=== PATIENT | female | born 1960 | race Caucasian/White ===

== ENCOUNTER → 2021-09-09 11:59 | Outpatient (CLI) | payer OTHER, SELFPAY ==
--- NOTE | 2021-09-09 | DI.MG.S_ITS ---
UNILATERAL LEFT DIGITAL DIAGNOSTIC MAMMOGRAM 3D/2D WITH ADDITIONAL VIEWS: 09/09/2021 CLINICAL: Additional evaluation requested from prior study. Comparison is made to exams dated: 03/03/2021 mammogram, 07/13/2018 mammogram, 04/12/2017 mammogram, and 03/07/2015 mammogram - [facility]. There are scattered fibroglandular elements in left breast. There is an asymmetry in the left breast middle depth superior region seen on the mediolateral oblique view only. This is not seen in additional views. No other significant masses or calcifications are seen in the breast. IMPRESSION: NEGATIVE There is no mammographic evidence of malignancy. The asymmetry in the left breast is consistent with fibroglandular tissue and is benign. A 1 year screening mammogram is recommended. Exam findings were conveyed to the patient. This exam was interpreted at Station ID: [id number]. NOTE: For mammograms, a report in lay terms will be sent to the patient. Approximately 15% of breast malignancies will not be visualized mammographically. In the management of a palpable breast mass, a negative mammogram must not discourage biopsy of a clinically suspicious lesion. Electronically Signed By: Arsalan Benavides M.D. slc/:09/09/2021 12:29:30 letter sent: Normal Exam ACR BI-RADS Category 1: Negative 3341F
== END ==
PROVIDERS: Family Provider Family Medicine; PCP Physician Assistant Medical; Referring Provider Physician Assistant Medical; Visit Provider Physician Assistant Medical
DX: R92.8 Other abnormal and inconclusive findings on diagnostic imaging of breast (principal)
CPT/HCPCS: 77065; G0279

== ENCOUNTER → 2022-10-08 14:23 | Outpatient (CLI) | payer OTHER, SELFPAY ==
--- NOTE | 2022-10-08 | DI.MG.S_ITS ---
BILATERAL DIGITAL SCREENING MAMMOGRAM 3D/2D WITH CAD: 10/08/2022 CLINICAL: Routine screening. Family history of breast cancer. Comparison is made to exams dated: 03/03/2021 mammogram, 07/13/2018 mammogram, and 04/12/2017 mammogram - [facility]. Both breasts are heterogeneously dense, which may obscure small masses (category c / 51-75% glandular tissue). Current study was also evaluated with a Computer Aided Detection (CAD) system. No significant masses, calcifications, or other findings are seen in either breast. There has been no significant interval change. IMPRESSION: NEGATIVE There is no mammographic evidence of malignancy. A 1 year screening mammogram is recommended. Based on the Tyrer Cuzick model (a risk assessment model) the patient's lifetime risk is 13.8% and her 10 year risk is 5.7%. According to the ACR, ACS, and NCCN guidelines, an annual breast MRI exam along with mammogram is recommended if the patient's lifetime risk is 20% or greater. This exam was interpreted at Station ID: [id number]. NOTE: For mammograms, a report in lay terms will be sent to the patient. Approximately 15% of breast malignancies will not be visualized mammographically. In the management of a palpable breast mass, a negative mammogram must not discourage biopsy of a clinically suspicious lesion. Electronically Signed By: Sara drake/giuseppe:10/08/2022 16:08:22 letter sent: Normal Exam ACR BI-RADS Category 1: Negative 3341F
== END ==
PROVIDERS: Family Provider Family Medicine; PCP Physician Assistant Medical; Referring Provider Physician Assistant Medical; Visit Provider Physician Assistant Medical
DX: Z12.31 Encounter for screening mammogram for malignant neoplasm of breast (principal); Z80.3 Family history of malignant neoplasm of breast
CPT/HCPCS: 77063; 77067

== ENCOUNTER → 2022-10-18 12:49 | Outpatient (CLI) | payer OTHER, SELFPAY ==
--- NOTE | 2022-10-18 12:51 | DI.MRI.S_ITS ---
PROCEDURE: MR HEAD/BRAIN WO/W CON INDICATIONS: Benign neoplasm of meninges, unspecified TECHNIQUE: Noncontrast axial T1 spin echo, axial T2 fast spin echo, sagittal and axial FLAIR, coronal T2 fast spin echo, axial gradient echo, axial diffusion and ADC through the brain. After the administration of contrast, axial and coronal and sagittal T1 spin echo with fat saturation through the brain. COMPARISON: [facility], MR, BRAIN W&WO CONTRAST, 06/22/2016, 10:41. FINDINGS: Image quality: Excellent. CSF spaces: Basal cisterns are patent. No extra-axial fluid collections. Ventricles are normal in size and shape. Brain: The previously seen meningioma of the left posterior fossa has been removed. No recurrent meningioma is seen. No masses or abnormal enhancement can be seen elsewhere. There is mild volume loss and encephalomalacia seen involving the posterior aspect of the left cerebellar hemisphere. No midline shift. There is cerebral volume loss for age. There is periventricular white matter chronic small vessel ischemic change. The brainstem appears normal. Diffusion-weighted images demonstrate no acute ischemic insults. Normal intravascular flow voids are present. Skull and face: Posterior craniotomy changes are seen. Calvarial marrow is normal in signal. Orbits appear normal. Sinuses: Sinuses and mastoids appear clear. IMPRESSION: Since 2017, there has been resection of the previously seen left posterior fossa meningioma. No recurrence is seen. No new masses are seen. Postoperative changes are seen, with craniotomy and mild left cerebellar volume loss and encephalomalacia. Dictated by: Kwan Sotelo M.D. on 10/18/2022 at 12:52 Approved by: Kwan Sotelo M.D. on 10/18/2022 at 12:55
== END ==
PROVIDERS: Family Provider Family Medicine; PCP Physician Assistant Medical; Referring Provider Physician Assistant Medical; Visit Provider Physician Assistant Medical
DX: D32.9 Benign neoplasm of meninges, unspecified (principal); G93.89 Other specified disorders of brain
CPT/HCPCS: 70553; A9579

== ENCOUNTER → 2023-10-18 13:43 | Outpatient (CLI) | payer OTHER, SELFPAY ==
--- NOTE | 2023-10-18 13:44 | DI.MG.S_ITS ---
BILATERAL DIGITAL SCREENING MAMMOGRAM 3D/2D WITH CAD: 10/18/2023 CLINICAL: Routine screening. Family history of breast cancer. Comparison is made to exams dated: 10/08/2022 mammogram, 09/09/2021 mammogram - [facility], and 03/03/2021 mammogram - [facility]. Both breasts are heterogeneously dense, which may obscure small masses (category c / 51-75% glandular tissue). Current study was also evaluated with a Computer Aided Detection (CAD) system. There is an oval focal asymmetry with a circumscribed margin in the left breast at 4 o'clock in the retroareolar region. This is increased in size. No other significant masses, calcifications, or other findings are seen in either breast. IMPRESSION: INCOMPLETE: NEEDS ADDITIONAL IMAGING EVALUATION The oval focal asymmetry in the left breast is indeterminate. Additional views with possible ultrasound are recommended. Based on the Tyrer Cuzick model (a risk assessment model) the patient's lifetime risk is 13.5% and her 10 year risk is 5.7%. According to the ACR, ACS, and NCCN guidelines, an annual breast MRI exam along with mammogram is recommended if the patient's lifetime risk is 20% or greater. This exam was interpreted at Station ID: [id number]. NOTE: For mammograms, a report in lay terms will be sent to the patient. Approximately 15% of breast malignancies will not be visualized mammographically. In the management of a palpable breast mass, a negative mammogram must not discourage biopsy of a clinically suspicious lesion. Electronically Signed By: Kameron ortiz/giuseppe:10/18/2023 15:25:16 letter sent: Additional Imaging Needed ACR BI-RADS Category 0: Incomplete 3340F
== END ==
PROVIDERS: Family Provider Family Medicine; PCP Physician Assistant Medical; Referring Provider Physician Assistant Medical; Visit Provider Physician Assistant Medical
DX: Z12.31 Encounter for screening mammogram for malignant neoplasm of breast (principal); R92.333 Mammographic heterogeneous density, bilateral breasts; Z80.3 Family history of malignant neoplasm of breast
CPT/HCPCS: 77063; 77067

== ENCOUNTER → 2023-11-28 12:53 | Outpatient (CLI) | payer OTHER, SELFPAY ==
--- NOTE | 2023-11-28 12:54 | DI.MG.S_ITS ---
UNILATERAL LEFT DIGITAL DIAGNOSTIC MAMMOGRAM 3D/2D WITH ADDITIONAL VIEWS: 11/28/2023 CLINICAL: Additional evaluation requested from prior study. Comparison is made to exams dated: 10/18/2023 mammogram, 10/08/2022 mammogram - [facility], and 03/03/2021 mammogram - [facility]. The left breast is heterogeneously dense, which may obscure small masses (category c / 51-75% glandular tissue). There is a focal asymmetry in the left breast at 4 o'clock anterior depth. This is seen in additional views. No other significant masses or calcifications are seen in the breast. IMPRESSION: INCOMPLETE: NEEDS ADDITIONAL IMAGING EVALUATION The focal asymmetry in the left breast is indeterminate. An ultrasound is recommended for further evaluation and is scheduled to immediately follow this examination. Based on the Tyrer Cuzick model (a risk assessment model) the patient's lifetime risk is 13.5% and her 10 year risk is 5.7%. According to the ACR, ACS, and NCCN guidelines, an annual breast MRI exam along with mammogram is recommended if the patient's lifetime risk is 20% or greater. This exam was interpreted at Station ID: [id number]. NOTE: For mammograms, a report in lay terms will be sent to the patient. Approximately 15% of breast malignancies will not be visualized mammographically. In the management of a palpable breast mass, a negative mammogram must not discourage biopsy of a clinically suspicious lesion. Electronically Signed By: Jaja Murrell M.D., Ph.D. eb/:11/28/2023 15:19:48 ACR BI-RADS Category 0: Incomplete 3340F
--- NOTE | 2023-11-28 12:55 | DI.US.S_ITS ---
LIMITED ULTRASOUND OF LEFT BREAST: 11/28/2023 CLINICAL: Patient returns today to evaluate a focal asymmetry in the left breast. Comparison is made to exams dated: 11/28/2023 mammogram, 10/18/2023 mammogram, 10/08/2022 mammogram, 09/09/2021 mammogram - [facility], 03/03/2021 mammogram, and 07/13/2018 mammogram - [facility]. Color flow and real-time ultrasound of the left breast 1 o'clock and 3 o'clock regions were performed. Lange scale images of the real-time examination were reviewed. There is benign duct ectasia in the left breast at 3 o'clock, 1 cm from the nipple. This corresponds to the mammographic finding. There is an incidental simple cyst seen at 1 o'clock, 1 cm from the nipple measuring up to 0.5 cm. IMPRESSION: BENIGN Left breast benign ductal ectasia and simple cyst at 3 o'clock and 1 o'clock, respectively. No mammographic or sonographic evidence of malignancy. A 1 year screening mammogram is recommended. Findings and recommendations were conveyed to the patient during today's evaluation. This exam was interpreted at Station ID: [id number]. Electronically Signed By: Jaja Murrell M.D., Ph.D. eb/:11/28/2023 15:20:56 letter sent: Normal Exam Ultrasound BI-RADS: 2 Benign
== END ==
PROVIDERS: Family Provider Family Medicine; PCP Physician Assistant Medical; Referring Provider Physician Assistant Medical; Visit Provider Physician Assistant Medical
DX: R92.8 Other abnormal and inconclusive findings on diagnostic imaging of breast (principal); N60.02 Solitary cyst of left breast; N60.42 Mammary duct ectasia of left breast; R92.332 Mammographic heterogeneous density, left breast
CPT/HCPCS: 76642; 77065; G0279

== ENCOUNTER → 2024-07-13 14:18 | Outpatient (CLI) | payer OTHER, SELFPAY ==
--- NOTE | 2024-07-13 14:19 | DI.ECHO.S_ITS ---
[facility] : : [address] : : [place] : : [id number] : : Phone: [phone] Echocardiogram Report + + :Name: SOCORRO COLLINS Study Date: 07/13/2024 Height: 60 in : :[facility] ReadingLocation: Weight: 107 lb : : Gender: Female BSA: 1.4 m2 : :: 1960 Age: 63 yrs BP: 162/88 mmHg: :Reason For Study: TIA : :Ordering Physician: BRENDAN, : :SANTIAGO Performed By: Baljit Martini : :Referring: SANTIAGO CARDONA : + + Interpretation Summary 1. The left ventricular contractility is normal. Estimated ejection fraction is greater than 60% with no segmental wall motion abnormalities. No LVH. Grade 1 diastolic dysfunction noted. 2. The right ventricular contractility is normal. 3. All cardiac chambers are of normal size. 4. No significant valvular abnormalities. 5. No obvious intracardiac shunts. The intra-atrial septum is lipomatous. 6. No obvious intracardiac masses nor thrombi. 7. No hemodynamically significant pericardial effusion. 8. Low right-sided filling pressures. Conclusion: Normal biventricular systolic function with no significant valvular abnormalities. Procedure: A two-dimensional transthoracic echocardiogram with color flow and Doppler was performed. The study quality was technically good. There is no prior echocardiogram noted for this patient. The patient was in normal sinus rhythm during the exam. Left Ventricle: The left ventricle is normal in size. There is normal left ventricular wall thickness. There is no ventricular septal defect visualized. The ejection fraction is estimated to be 60-65%. There are no focal wall motion abnormalities. Diastolic parameters suggest a relaxation abnormality of the left ventricle, consistent with probable normal filling pressures. Right Ventricle: The right ventricle is normal in size and function. Atria: The left atrial size is normal. Right atrial size is normal. There is no Doppler evidence for an interatrial shunt. Mitral Valve: The mitral valve leaflets appear normal. There is no evidence of stenosis, fluttering, or prolapse. There is no mitral regurgitation noted. Aortic Valve: The aortic valve is trileaflet. The aortic valve opens well. No aortic regurgitation is present. Tricuspid Valve: The tricuspid valve leaflets are thin and pliable. No tricuspid regurgitation. Pulmonic Valve: The pulmonic valve leaflets are thin and pliable; valve motion is normal. There is no pulmonic valvular regurgitation. Great Vessels: The aortic root is normal size. The dimensions of the ascending aorta are normal. The pulmonary artery is normal size. The IVC is of normal diameter and collapses greater than 50% with a sniff. This suggests a low right atrial pressure of 3 mm Hg. Pericardium/ Pleura There is no pericardial effusion. There is no pleural effusion. MMode/2D Measurements & Calculations LVIDd: 4.2 cm LVOT diam: 2.1 cm LVIDs: 2.6 cm Ao root diam: 3.0 cm FS: 37.8 % asc Aorta Diam: 3.2 cm EPSS: 0.42 cm Ao Arch Diam (Prox Trans): 1.9 cm IVSd: 1.00 cm LVPWd: 0.85 cm LV farrell. diameter/BSA (cm/m^2): 2.9 LV sys. diameter/BSA (cm/m^2): 1.8 LA A2 area: 15.1 cm2 RA long axis: 3.8 cm LA A4 area: 14.0 cm2 RA area: 9.6 cm2 LA length (vol): 4.5 cm RA vol: 21.0 ml LA vol: 39.8 ml RA : 14.7 ml/m2 LA vol index: 27.8 ml/m2 IVC diam: 1.3 cm RVD1 (basal): 3.4 cm RVD2 (mid): 2.8 cm TAPSE: 1.9 cm Doppler Measurements & Calculations Ao V2 max: 105.3 cm/sec LVOT Max Demarco: 90.2 cm/sec Ao V2 mean: 80.5 cm/sec LV V1 max P.3 mmHg Ao max P.4 mmHg LV V1 VTI: 18.5 cm Ao mean P.7 mmHg CHELSI(I,D): 3.0 cm2 Ao V2 VTI: 22.4 cm CHELSI(V,D): 3.1 cm2 sev ratio: 0.83 CHELSI indexed to BSA (cm^2/m^2): 2.1 MV E max demarco: 67.0 cm/sec PA V2 max: 59.2 cm/sec MV A max demarco: 88.3 cm/sec PA V2 mean: 40.9 cm/sec MV E/A: 0.76 PA mean P.76 mmHg Med Peak E' Demarco: 5.9 cm/sec PA pr(Accel): 22.5 mmHg E/E' med: 11.3 Lat Peak E' Demarco: 5.6 cm/sec E/E' lat: 11.9 E/e' average: 11.6 MV dec time: 0.21 sec SV(LVOT): 66.6 ml Reading Physician:
== END ==
PROVIDERS: Family Provider Family Medicine; PCP Physician Assistant Medical; Referring Provider Physician Assistant Medical; Visit Provider Physician Assistant Medical
DX: G45.9 Transient cerebral ischemic attack, unspecified (principal)
CPT/HCPCS: 93306

== ENCOUNTER → 2025-01-01 16:49 | Outpatient (CLI) | payer OTHER, SELFPAY ==
--- NOTE | 2025-01-01 16:50 | DI.MG.S_ITS ---
MM screening mammo BI: 01/01/2025. BI-RADS: 1 CLINICAL: 64-year old female for bilateral screening mammogram. Tyrer-Cuzick lifetime risk of 4.6%. No personal or first-degree family history of breast cancer. The patient had a prior left breast biopsy. PRIOR EXAMS 11/28/2023, 10/18/2023, 10/08/2022, 09/09/2021, MAMMOGRAPHY TECHNIQUE: 2D and 3D (tomosynthesis) digital mammographic views obtained, with additional images as needed for full coverage. Current study was also evaluated with a Computer Aided Detection (CAD) system. DENSITY C. The breasts are heterogeneously dense, which may obscure small masses. MAMMOGRAPHY FINDINGS Bilateral: No suspicious mass, asymmetry, microcalcification, or other abnormality seen. IMPRESSION: * No evidence of malignancy. RECOMMENDATIONS Bilateral * Annual screening mammography. OVERALL ASSESSMENT CATEGORY BI-RADS-1: Negative. The [employer] recommends annual screening mammography beginning at age 40 for women with average risk of breast cancer. ELECTRONICALLY SIGNED: Carlos Eduardo Drake M.D. on 01/02/2025 at 08:40:11 AM PT Interpreting Station ID: [id number]
== END ==
LOC: MAMMO 16:50
PROVIDERS: Family Provider Family Medicine; PCP Physician Assistant Medical; Referring Provider Physician Assistant Medical; Visit Provider Physician Assistant Medical
DX: Z12.31 Encounter for screening mammogram for malignant neoplasm of breast (principal); R92.333 Mammographic heterogeneous density, bilateral breasts
CPT/HCPCS: 77063; 77067